=== PATIENT | male | born 1985 | race Caucasian/White ===

== ENCOUNTER 2017-04-03 14:00 | Inpatient (IN) | payer OTHER ==
--- NOTE | ~2017-04-03 | PA ---
Unit #: [id number] #: [id number] Patient: DAXA WATTS [id number] [facility] [address] [place] [address] [id number] MR#: [id number] NAME: DAXA WATTS. ROOM: P171 Age: 31 Sex: M Admission Date: 04/03/2017 : 1985 Date of Assessment: 04/04/2017 Attending Physician: Zachary Moran M.D. Admitting Physician: Zachary Moran M.D. Primary Care Physician: Primary Care Physician No PSYCHIATRIC ASSESSMENT IDENTIFYING INFORMATION The patient is a 31-year-old white male with recurrent suicidal ideation, depressed mood, and abuse of cocaine and alcohol. CHIEF COMPLAINT None given. INFORMANT(S) Patient, reliability is good. HISTORY OF PRESENT ILLNESS The patient is a 31-year-old white male with a history of alcohol and cocaine use. He was last admitted to this facility in 2013. Since that time, the patient has been diagnosed with multiple sclerosis which manifests itself mainly by tremors and visual changes. The patient is prescribed gabapentin, tizanidine, and baclofen for this condition. The patient reports that he has been drinking 24 beers on a daily basis as well as cocaine, this despite of the fact that he is currently residing at a local correction house. The patient reports that he does work at [employer] but has gotten time-off so that he can attend to his sobriety. The patient reports that he feels as though his prescribed psychotropic medications are not sufficiently addressing his depressive symptoms. He is continuing to endorse positive suicidal ideation with plan to overdose during today's interview. He denies recent changes in sleep or appetite. PAST PSYCHIATRIC HISTORY As above. PAST MEDICAL HISTORY Again, significant as noted for history of multiple sclerosis. MEDICATIONS Baclofen, bupropion XL, divalproex DR, fluoxetine, gabapentin, and tizanidine. ALLERGIES None. FAMILY HISTORY Noncontributory. SOCIAL HISTORY The patient is currently residing in [facility]. Unit #: [id number] #: [id number] Patient: DAXA WATTS SUBSTANCE ABUSE HISTORY As noted previously as is his occupational history. MENTAL STATUS EXAMINATION Examination at this time reveals the patient to be a well-developed well-nourished white male appearing his stated age. He is in no apparent physical distress at the time of examination. He is awake, alert, and oriented in all spheres. His mood is mildly dysphoric, his affect is constricted. Speech is generally well-coherent. There are no gross deficits in memory or cognition noted. Intelligence is judged to be in the average range based on fund of knowledge. The patient is cooperative throughout the interview. He is currently endorsing positive suicidal ideation. He denies homicidal ideation. He denies any psychotic symptoms. His judgment and insight appear to be intact. ASSETS AND LIABILITIES The patient's assets: Motivation for change. Liabilities: Lack of resources. DIAGNOSTIC IMPRESSION 1. Major depressive disorder, recurrent, moderate. 2. Cocaine use disorder. 3. Alcohol use disorder. 4. Multiple sclerosis. TREATMENT PLAN The patient remains hospitalized for safety and stabilization. I will go ahead and increase his dose of Wellbutrin, and we will consider further medication adjustments, but I have spoken with the patient regarding the fact that his ongoing abuse of alcohol and cocaine will certainly inhibit any potential positive effect he will have from any medication changes related to his depressive symptoms. ESTIMATED LENGTH OF STAY 5 to 7 days. Dictated by... Zachary Moran M.D. Lian TD: 04/04/2017 12:32 JOB #: [id number] PSYCHIATRIC ASSESSMENT Page 1 of 1 X Zachary Moran MD PSYCHIATRIC ASSESSMENT
--- NOTE | ~2017-04-03 | HP ---
Unit #: [id number] #: [id number] Patient: TRISTEN WATTS [id number] [place] [address] [id number] I MR#: [id number] NAME: TRISTEN WATTS. ROOM: 71 Age: 31 Sex: M Admission Date: 04/03/2017 : 1985 Attending Physician: Zachary Moran M.D. Admitting Physician: Zachary Moran M.D. Primary Care Physician: Primary Care Physician No HISTORY AND PHYSICAL HISTORY OF PRESENT ILLNESS Tristen is a 31-year-old male admitted on 04/03/2017 for detox from alcohol. PAST MEDICAL HISTORY 1. Multiple sclerosis diagnosed 1 year ago. 2. Asthma. 3. Depression. 4. Anxiety. PAST SURGICAL HISTORY Skull fracture that was surgically repaired in childhood. SOCIAL HISTORY Smokes 1 pack of cigarettes daily. Drinks 24 beers daily. Has a history of cocaine use. He is currently single and living in a senior living house. FAMILY HISTORY Noncontributory. REVIEW OF SYSTEMS CONSTITUTIONAL: No fever or chills. HEENT: Denies any sore throat, ear pain or runny nose. CARDIOVASCULAR: Denies chest pain, irregular heart rhythm or palpitations. CHEST: Denies shortness of breath or cough. No hemoptysis. GASTROINTESTINAL: Denies nausea, vomiting, diarrhea or chronic constipation. ENDOCRINE: Denies history of increased thirst or urination. No recent significant weight loss or gain. GENITOURINARY: Denies dysuria, frequency, or hematuria. SKIN: Denies any rashes. HEMATOLOGIC: Denies history of increased bleeding or bruising. MUSCULOSKELETAL: Denies any hot, swollen joints. No generalized muscle pain. NEUROLOGIC: Denies problems with vision or speech. No frequent, severe headaches. No numbness, tingling or weakness in any extremities. Denies loss of bladder or bowel control. CURRENT MEDICATIONS Baclofen, bupropion, divalproex, fluoxetine, gabapentin, and tizanidine. ALLERGIES No known drug allergies. Unit #: [id number] #: [id number] Patient: TRISTEN WATTS PHYSICAL EXAMINATION GENERAL: Alert, oriented, no acute distress. VITAL SIGNS: Blood pressure 115/78, heart rate 78, respirations 16. HEIGHT: 5 feet 9. WEIGHT: 140 pounds. SKIN: Warm, dry. No rashes or lesions, track sanchez, cuts, etc. HEENT: Normocephalic. TMs not viewed. Oronasal passages clear. Conjunctivae clear. PERRLA. EOM is intact. NECK: No lymphadenopathy or thyromegaly. HEART: Regular rate and rhythm. No murmur, gallop, or rub. LUNGS: Clear to auscultation bilaterally. ABDOMEN: Soft, nontender without palpable masses or hepatosplenomegaly. : Not assessed. EXTREMITIES: No evidence of cyanosis, clubbing, or edema. Moves all extremities independently without obvious deficit. NEUROLOGICAL: Grossly within normal limits. Cranial Nerves: II: Visual bass are intact. III, IV AND : Extraocular movements are intact. Pupils are equal, round and reactive to light. V: Facial sensation is grossly normal. VII: Facial movements and expression are normal. VIII: Auditory acuity grossly intact. IX, X: Uvula is midline. Phonation is normal. XI: Patient shrugs shoulders and turns head normally. XII: Tongue protrudes in the midline. Sensory and Motor Function: Sensory and motor sensation is grossly normal. Motor: moves all extremities well. Coordination: Gait is normal. Deep Tendon Reflexes: Intact. IMPRESSION 1. Psychiatric admission. 2. Multiple sclerosis. 3. Asthma. 4. Depression. 5. Anxiety. RECOMMENDATIONS PSYCHIATRIC: Per psychiatrist. MEDICAL: No contraindication to participating in facility's activities. MEDICAL PROGNOSIS Good. MEDICAL CONDITION Stable. Dictated by... Yuri Blood TD: 04/04/2017 15:52 JOB #: [id number] Unit #: [id number] #: [id number] Patient: TRISTEN WATTS HISTORY AND PHYSICAL Page 1 of 1 X KERRIE BIRMINGHAM APRN HISTORY AND PHYSICAL
--- NOTE | ~2017-04-03 | PN ---
Unit #: [id number] #: [id number] Patient: DAXA WATTS [id number] [facility] [address] [place] [address] [id number] MR#: [id number] NAME: DAXA WATTS ROOM: P171 Age: 31 Sex: M Admission Date: 04/03/2017 : 1985 Attending Physician: Zachary Moran M.D. Admitting Physician: Zachary Moran M.D. Primary Care Physician: Primary Care Physician Carole LOMAX PROGRESS NOTES DATE 04/05/2017 DISCUSSION The patient is abed today. He continues to complain of depressed mood but reports less hopelessness and suicidal thinking. He is in agreement with a plan for followup in the intensive outpatient program once discharged with completion of detox. Dictated by... Zachary Moran M.D. CB/rip TD: 04/06/2017 02:37 JOB #: [id number] MONIE PROGRESS NOTES Page 1 of 1 X Zachary Moran MD PROGRESS NOTE
--- NOTE | ~2017-04-03 | DS ---
Unit #: [id number] #: [id number] Patient: DAXA WATTS [id number] [place] [address] [id number] I MR#: [id number] NAME: DAXA WATTS. ROOM: [facility] Age: 31 Sex: M Admission Date: 04/03/2017 : 1985 Discharge Date: 04/06/2017 Attending Physician: Zachary Moran M.D. Primary Care Physician: No Primary Care Physician DISCHARGE SUMMARY REASON FOR ADMISSION The patient is a 31-year-old white male admitted to the [facility] unit for alcohol detox and increasing depression. HOSPITAL COURSE The patient was admitted to the [facility] unit and placed on suicide precautions and routine detoxification protocol for alcohol disorder. The patient's Wellbutrin dose was increased to 300 mg daily. The patient's detox went smoothly and he was active within the therapeutic milieu. By 04/06/2017 the patient was agreeable to the plan for discharge with followup to take place in the intensive outpatient chemical dependence treatment program provided by this facility. Discharge was ordered. DISCHARGE DIAGNOSES 1. Dysthymic disorder. 2. Alcohol use disorder. 3. Multiple sclerosis. FOLLOWUP CARE Followup will take place through the auspices of [facility] and the chemical dependence intensive outpatient program provided by this facility. DISCHARGE MEDICATIONS 1. Wellbutrin XL 450 mg daily for depression. 2. Zanaflex 2 mg q.6 h. p.r.n. muscle spasms. 3. Neurontin 100 mg t.i.d. for pain and tremor related to MS. 4. Prozac 20 mg daily for depression. 5. Depakote 500 mg t.i.d. for mood stabilization. 6. Lioresal 20 mg t.i.d. for muscle relaxation. PROGNOSIS Good. DIET AND ACTIVITY No restrictions placed on the patient at the time of discharge. Dictated by... Zachary Moran M.D. CB/skyler Unit #: [id number] #: [id number] Patient: DAXA WATTS TD: 04/08/2017 13:57 JOB #: [id number] DISCHARGE SUMMARY Page 1 of 1 X Zachary Moran MD DISCHARGE SUMMARY
[2017-04-04 12:38] LABS: BASOPHIL% 0.4 % (0-2.5); EOSINOPHIL# 0.2 X10e3 (0-0.7); EOSINOPHIL% 2.9 % (0.0-7.0); HEMATOCRIT 41.6 % (38.0-50.0); HEMOGLOBIN 13.9 gm/dL (13.0-16.0); LYMPHOCYTE# 4.2 X10e3 (1.0-3.5); LYMPHOCYTE% 50.5 % (17.0-45.0); MEAN CELL VOLUME 94.5 FL (83-96); MEAN CORPUSCULAR HEMOGLOBIN 31.5 PG (28-34); MEAN CORPUSCULAR HGB CONC 33.4 g/dL (30-36); MEAN PLATELET VOLUME 8.4 FL (6.5-11.5); MONOCYTE# 0.5 X10e3 (0-1.0); MONOCYTE% 5.5 % (3.0-12.0); NEUTROPHIL# 3.4 X10e3 (1.5-7.1); NEUTROPHIL% 40.7 % (40-75); PLATELET COUNT 217 X10e3 (140-420); RED CELL DISTRIBUTION WIDTH 15.1 % (11.0-15.5); WHITE BLOOD COUNT 8.2 X10e3 (4.0-10.5)
[2017-04-04 12:40] LABS: DIFF IND YES
[2017-04-04 13:09] LABS: ANISOCYTOSIS SL; NUCLEATED RED BLOOD CELL 1 /100 (0); PLATELET ESTIMATE NORMAL (NORMAL)
[2017-04-04 13:11] LABS: BILIRUBIN,TOTAL 0.6 mg/dL (0.2-2.0); BUN/CREATININE RATIO 15.55; CALCIUM SERUM 9.5 mg/dL (8.4-10.2); CREATININE SERUM 0.9 mg/dL (0.6-1.4); GLOM FILT RATE Estimated 112.6 mL/min (>60); PROTEIN TOTAL SERUM 6.5 g/dL (6.0-8.3)
[2017-04-06 12:31] LABS: URINE APPEARANCE CLEAR; URINE BILIRUBIN NEG (NEG); URINE BLOOD NEG (NEG); URINE COLOR DK YELLOW; URINE GLUCOSE NEG (NEG); URINE KETONE NEG (NEG); URINE LEUKOCYTE ESTERASE NEG (NEG); URINE NITRATE NEG (NEG); URINE PROTEIN NEG (NEG); URINE SPECIFIC GRAVITY 1.015 (1.003-1.035)
[2017-04-06 12:46] LABS: AMPHETAMINE NEG (NEG); BARBITURATES NEG (NEG); BENZODIAZEPINES POS (NEG); COCAINE NEG (NEG); MARIJUANA NEG (NEG); OPIATES NEG (NEG); TRICYCLIC ANTIDEPRESSANTS NEG (NEG); U METHADONE NEG (NEG)
== END 2017-04-06 14:40 | disposition home or self-care (01) | DRG 885 ==
LOC: P1E 17:41
PROVIDERS: Specialist
PROC: HZ2ZZZZ Detoxification Services for Substance Abuse Treatment (ICD-10-PCS; principal; 2017-04-03)
DX: F33.1 Major depressive disorder, recurrent, moderate (principal); F14.20 Cocaine dependence, uncomplicated; F10.20 Alcohol dependence, uncomplicated; G35 Multiple sclerosis; F41.9 Anxiety disorder, unspecified
CPT/HCPCS: 80053; 80164; 80307; 81003; 82140; 85025; 86592

== ENCOUNTER 2017-06-25 16:00 | Inpatient (IN) | payer OTHER ==
[~2017-06-25] VITALS: Ht 175.3 cm; Wt 66.2 kg
--- NOTE | ~2017-06-25 | PA ---
Unit #: [id number] #: [id number] Patient: DAXA WATTS [id number] [facility] [address] [place] [address] [id number] MR#: [id number] NAME: DAXA WATTS. ROOM: P202 Age: 32 Sex: M Admission Date: 06/25/2017 : 1985 Date of Assessment: 06/26/2017 Attending Physician: Zachary Moran M.D. Admitting Physician: Zachary Moran M.D. Primary Care Physician: Primary Care Physician No PSYCHIATRIC ASSESSMENT IDENTIFYING INFORMATION The patient is a 32-year-old white male admitted with increasing abuse of alcohol and cocaine. CHIEF COMPLAINT None given. INFORMANT(S) Patient, reliability is fair. HISTORY OF PRESENT ILLNESS The patient is a 32-year-old white male admitted after he had relapsed in a local sober living facility. The patient reports that he has also been using cocaine. The patient denies current suicidal or homicidal ideation. When last discharged from this facility, the patient's discharge medications included Wellbutrin XL, Prozac, and Depakote ER. When seen today, the patient cannot be aroused for interview. For more complete history of present illness, please refer to previously dictated notes. PAST PSYCHIATRIC HISTORY Reviewed, no changes. PAST MEDICAL HISTORY Reviewed, no changes. MEDICATIONS 1. Depakote. 2. Prozac. 3. Zanaflex. 4. Wellbutrin. ALLERGIES None. FAMILY HISTORY Reviewed, no changes. SOCIAL HISTORY Reviewed, no changes. MENTAL STATUS EXAMINATION Examination at this time reveals the patient to be a soundly sleeping white male although the attempts to arouse the patient are unsuccessful. Unit #: [id number] #: [id number] Patient: DAXA WATTS ASSETS AND LIABILITIES The patient's assets are to be assessed. Liabilities: Lack of resources. DIAGNOSTIC IMPRESSION 1. Alcohol use disorder. 2. Cocaine use disorder. 3. Dysthymic disorder. 4. Multiple sclerosis by history. TREATMENT PLAN The patient remains hospitalized for safety and stabilization. We will restart previously prescribed medications and routine detoxification protocol for alcohol is in place. Suicide precautions likewise ordered though the patient did not report any suicidal ideation at the time of admission. ESTIMATED LENGTH OF STAY 3 to 5 days. Dictated by... Shaggy Lopez TD: 06/26/2017 14:29 JOB #: [id number] PSYCHIATRIC ASSESSMENT Page 1 of 1 X Zachary Moran MD PSYCHIATRIC ASSESSMENT
--- NOTE | ~2017-06-25 | PN ---
Unit #: [id number] #: [id number] Patient: DAXA WATTS [id number] [facility] [address] [place] [address] [id number] I MR#: [id number] NAME: DAXA WATTS ROOM: P202 Age: 32 Sex: M Admission Date: 06/25/2017 : 1985 Attending Physician: Zachary Moran M.D. Admitting Physician: Zachary Moran M.D. Primary Care Physician: Primary Care Physician Carole LOMAX PROGRESS NOTES DATE 06/27/2017 DISCUSSION The patient reports that he will plan to return to the Sober Living facility in which he had been residing with completion of detox which should be by Thursday, and the patient is in agreement with this plan. I have encouraged him to increase his participation within the therapeutic milieu. Dictated by... Zachary Moran M.D. CB/bzg TD: 06/27/2017 12:51 JOB #: [id number] MONIE PROGRESS NOTES Page 1 of 1 X Zachary Moran MD PROGRESS NOTE
--- NOTE | ~2017-06-25 | DS ---
Unit #: [id number] #: [id number] Patient: DAXA WATTS [id number] [facility] [address] [place] [address] [id number] I MR#: [id number] NAME: DAXA WATTS. ROOM: P202 Age: 32 Sex: M Admission Date: 06/25/2017 : 1985 Discharge Date: 06/29/2017 Attending Physician: Zachary Moran M.D. Primary Care Physician: Primary Care Physician No DISCHARGE SUMMARY REASON FOR ADMISSION The patient is a 32-year-old male, admitted to the [address] [place] [address] for alcohol detox. HOSPITAL COURSE The patient was admitted to [address] [place] [address] and placed on suicidal precautions. A routine detoxification protocol for alcohol was initiated, and the patient was continued on previously prescribed medications including Wellbutrin, Prozac, Depakote, and Zanaflex. The patient's stay in the hospital was uneventful one. His detox went smoothly and by 06/29, the patient exhibited no signs or symptoms of withdrawal. He denied suicidal ideation and requested discharge on that date citing a wish to return to the sober living facility he had previously occupied. Discharge was ordered. FINAL DIAGNOSES Alcohol use disorder; mood disorder, unspecified. DISPOSITION ON DISCHARGE The patient is discharged on the following medications: Depakote 500 mg t.i.d. for mood stabilization, Prozac 20 mg daily for depression, Wellbutrin XL 300 mg daily for depression, Zanaflex 2 mg q.6 hours p.r.n. muscle stiffness. DISCHARGE INSTRUCTIONS No dietary or physical restrictions were placed on the patient at the time of discharge. FOLLOWUP Followup will take place through the auspices of [facility]. PROGNOSIS Considered fair. Dictated by... Zachary Moran M.D. CB/shonda TD: 07/01/2017 07:19 JOB #: [id number] Unit #: [id number] #: [id number] Patient: DAXA WATTS DISCHARGE SUMMARY Page 1 of 1 X Zachary Moran MD X DISCHARGE SUMMARY
--- NOTE | ~2017-06-25 | HP ---
Unit #: [id number] #: [id number] Patient: TRISTEN WATTS [id number] [place] [address] [id number] I MR#: [id number] NAME: TRISTEN WATTS. ROOM: P202 Age: 32 Sex: M Admission Date: 06/25/2017 : 1985 Attending Physician: Zachary Moran M.D. Admitting Physician: Zachary Moran M.D. Primary Care Physician: Primary Care Physician No HISTORY AND PHYSICAL HISTORY OF PRESENT ILLNESS Tristen is a 32 year old admitted to [address] [place] [address] because of his continued abuse of alcohol. PAST MEDICAL HISTORY 1. Long history of alcohol abuse. 2. Multiple sclerosis. 3. Asthma. PAST SURGICAL HISTORY Skull fracture that was surgically repaired in childhood. ALLERGIES No known drug allergies. SOCIAL HISTORY Smokes 1 pack per day. Drinks at least 24 beers on a daily basis. Has a history of illicit drug use. FAMILY HISTORY Medically noncontributory. REVIEW OF SYSTEMS CONSTITUTIONAL: No fever or chills. HEENT: Denies any sore throat, ear pain or runny nose. CARDIOVASCULAR: Denies chest pain, irregular heart rhythm or palpitations. CHEST: Denies shortness of breath or cough. No hemoptysis. GASTROINTESTINAL: Denies nausea, vomiting, diarrhea or chronic constipation. ENDOCRINE: Denies history of increased thirst or urination. No recent significant weight loss or gain. GENITOURINARY: Denies dysuria, frequency, or hematuria. SKIN: Denies any rashes. HEMATOLOGIC: Denies history of increased bleeding or bruising. MUSCULOSKELETAL: Denies any hot, swollen joints. No generalized muscle pain. NEUROLOGIC: Denies problems with vision or speech. No frequent, severe headaches. No numbness, tingling or weakness in any extremities. Denies loss of bladder or bowel control. CURRENT MEDICATIONS 1. Detox protocol. 2. Prozac 20 mg daily. Unit #: [id number] #: [id number] Patient: TRISTEN WATTS 3. Wellbutrin XL 300 mg daily. 4. Depakote 500 mg t.i.d. 5. Zanaflex p.r.n. PHYSICAL EXAMINATION GENERAL: Alert, well-nourished, in no apparent distress. VITAL SIGNS: Blood pressure 115/74, heart rate 74, respirations 16, temperature 98.6. WEIGHT: 146. HEIGHT: 5 feet 9 inches. SKIN: Warm and dry without rash or lesion. HEENT: Normocephalic. TMs not viewed. Oral and nasal passages clear. Conjunctivae clear. PERRLA. EOMs intact. NECK: Supple without lymphadenopathy or thyromegaly. HEART: Regular rate and rhythm without murmur. LUNGS: Clear. ABDOMEN: Soft, nontender. : Not done. EXTREMITIES: No evidence of cyanosis, clubbing or edema. Moves all without focal deficit. NEUROLOGICAL: Grossly within normal limits. Cranial Nerves: II: Visual bass are intact. III, IV AND : Extraocular movements are intact. Pupils are equal, round and reactive to light. V: Facial sensation is grossly normal. VII: Facial movements and expression are normal. VIII: Auditory acuity grossly intact. IX, X: Uvula is midline. Phonation is normal. XI: Patient shrugs shoulders and turns head normally. XII: Tongue protrudes in the midline. Sensory and Motor Function: Sensory and motor sensation is grossly normal. Motor: moves all extremities well. Coordination: Gait is normal. Deep Tendon Reflexes: Intact. IMPRESSION Psychiatric admission. RECOMMENDATIONS PSYCHIATRIC: Per psychiatrist. MEDICAL: See no contraindication to participate in facility's activities. MEDICAL PROGNOSIS Good. MEDICAL CONDITION Stable. Dictated by... Tori Amos P.A.-C. for Shaggy Elam/daniel TD: 06/26/2017 19:58 JOB #: [id number] Unit #: [id number] #: [id number] Patient: TRISTEN WATTS HISTORY AND PHYSICAL Page 1 of 1 X Tori Amos PA X HISTORY AND PHYSICAL
--- NOTE | ~2017-06-25 | PN ---
Unit #: [id number] #: [id number] Patient: DAXA WATTS [id number] [facility] [address] [place] [address] [id number] MR#: [id number] NAME: DAXA WATTS ROOM: P202 Age: 32 Sex: M Admission Date: 06/25/2017 : 1985 Attending Physician: Zachary Moran M.D. Admitting Physician: Zachary Moran M.D. Primary Care Physician: Primary Care Physician Carole LOMAX PROGRESS NOTES DATE 06/28/2017 DISCUSSION The patient is exhibiting little in the way of signs or symptoms of withdrawal and voices no new complaints when seen today. We expect discharge to his sober (1) facility to take place in the morning. Dictated by... Zachary Moran M.D. AMAYA/rip TD: 06/28/2017 21:21 JOB #: [id number] MONIE PROGRESS NOTES Page 1 of 1 X Zachary Moran MD PROGRESS NOTE
== END 2017-06-29 14:37 | disposition home or self-care (01) | DRG 897 ==
LOC: P2S 20:32
PROC: HZ2ZZZZ Detoxification Services for Substance Abuse Treatment (ICD-10-PCS; principal; 2017-06-26)
DX: F10.10 Alcohol abuse, uncomplicated (principal); F14.10 Cocaine abuse, uncomplicated; G35 Multiple sclerosis; F34.1 Dysthymic disorder; F17.210 Nicotine dependence, cigarettes, uncomplicated